=== PATIENT | male | born 1980 | race Caucasian/White ===

== ENCOUNTER 2017-07-24 10:34 | Emergency (ER) | payer MEDICAID ==
[~2017-07-24] VITALS: Ht 165.1 cm; Wt 66.0 kg
[~2017-07-24 10:34] MED LIST: DIPH-423 PO; HYDR-2514 PO; IBUP-1984 PO
[2017-07-24 10:46] VITALS: BP 161/112
== END 2017-07-24 12:04 | disposition left against medical advice (07) ==
LOC: ER 10:34
DX: M25.569 Pain in unspecified knee (principal); Z53.21 Procedure and treatment not carried out due to patient leaving prior to being seen by health care provider

== ENCOUNTER 2017-07-25 18:26 | Emergency (ER) | payer MEDICAID | END 2017-07-25 19:27 | disposition left against medical advice (07) | LOC: ER 18:26 | DX: M79.89 Other specified soft tissue disorders (principal); Z53.21 Procedure and treatment not carried out due to patient leaving prior to being seen by health care provider ==

== ENCOUNTER 2019-12-03 10:52 | Emergency (ER) | payer MEDICAID ==
[~2019-12-03] VITALS: Ht 165.1 cm; Wt 68.8 kg
[~2019-12-03 10:52] MED LIST changes: +FAMO-128 PO; +METH4TAB81 PO
[2019-12-03] MEDS ORDERED: DIPH-423 PO (11:09)
[2019-12-03] MEDS ORDERED: diphenhydrAMINE 50 mg/ml inj IM ONE (11:10)
[2019-12-03] MEDS ORDERED: predniSONE 20 mg tablet PO ONE (11:10)
[2019-12-03 11:22] VITALS: BP 133/93
== END 2019-12-03 11:23 | disposition home or self-care (01) ==
LOC: ER 10:53
DX: T78.40XA Allergy, unspecified, initial encounter (principal); R22.31 Localized swelling, mass and lump, right upper limb; F17.210 Nicotine dependence, cigarettes, uncomplicated; Z79.899 Other long term (current) drug therapy; X58.XXXA Exposure to other specified factors, initial encounter
CPT/HCPCS: 96372; 99283; J1200; J7512

== ENCOUNTER 2020-05-12 10:13 | Emergency (ER) | payer MEDICAID ==
[~2020-05-12] VITALS: Ht 165.1 cm; Wt 74.3 kg
[2020-05-12 10:15] VITALS: BP 148/103
[2020-05-12] MEDS ORDERED: PRED10TA23 PO (10:57)
== END 2020-05-12 11:11 | disposition home or self-care (01) ==
LOC: ER 10:14
DX: L23.2 Allergic contact dermatitis due to cosmetics (principal); Z72.89 Other problems related to lifestyle; Z79.899 Other long term (current) drug therapy
CPT/HCPCS: 99283

== ENCOUNTER 2021-03-28 12:13 | Emergency (ER) | payer MEDICAID ==
[~2021-03-28] VITALS: Ht 165.1 cm; Wt 70.5 kg
[2021-03-28 12:23] VITALS: BP 150/102
[2021-03-28] MEDS ORDERED: NAPR-56 PO (12:29)
[2021-03-28] MEDS ORDERED: ketorolac trometh inj. 60 MG/2 ML VIAL IM ONE (12:30)
== END 2021-03-28 13:03 | disposition home or self-care (01) ==
LOC: ER 12:14
DX: M54.41 Lumbago with sciatica, right side (principal); G89.29 Other chronic pain; M54.10 Radiculopathy, site unspecified
CPT/HCPCS: 96372; 99283; J1885

== ENCOUNTER 2021-03-31 23:16 | Emergency (ER) | payer MEDICAID ==
[~2021-03-31 23:16] MED LIST changes: +NAPR-56 PO
== END 2021-04-01 00:30 | disposition left against medical advice (07) ==
LOC: ER 23:17
DX: Z53.21 Procedure and treatment not carried out due to patient leaving prior to being seen by health care provider (principal)

== ENCOUNTER 2024-01-11 07:14 | Emergency (ER) | payer MEDICAID ==
[~2024-01-11] VITALS: Ht 165.1 cm; Wt 68.2 kg
[~2024-01-11 07:14] MED LIST changes: -NAPR-56 PO
[2024-01-11 07:17] VITALS: BP 142/94; PULSE 107; RESP 16; TEMP 98.1; O2SAT 98
[2024-01-11] MEDS ORDERED: DOXY100C5 PO (08:21)
[2024-01-11] MEDS ORDERED: CLOT15CR73 TOP (08:21)
== END 2024-01-11 08:44 | disposition home or self-care (01) ==
LOC: ER 07:14
DX: L30.8 Other specified dermatitis (principal); B36.8 Other specified superficial mycoses; F17.200 Nicotine dependence, unspecified, uncomplicated; Z79.899 Other long term (current) drug therapy; Z79.1 Long term (current) use of non-steroidal anti-inflammatories (NSAID); Z79.52 Long term (current) use of systemic steroids
CPT/HCPCS: 99283; A6253